=== PATIENT | male | born 1945 | race Caucasian/White ===

== ENCOUNTER 2025-08-17 16:49 | Inpatient (IN) | payer MEDICARE ==
[~2025-08-17 16:49] MED LIST: Iopamidol 370 76% 100 ML VIAL ONE
[2025-08-17] MEDS ORDERED: Dexamethasone 10 MG/ML VIAL ONE (17:48)
[2025-08-17 18:17] LABS: #Basophils 0.03 10x3/uL (0.0-0.2); #Eosinophils Less than 0.03 10x3/uL (0.0-0.5); #Monocytes 0.84 10x3/uL (0.0-1.1); #Neutrophils 5.26 10x3/uL (1.5-8.4); %Basophils 0.4 % (0.0-2.0); %Eosinophils 0.1 % (0.0-6.0); %Lymphocytes 13.6 % (18.0-47.0); %Monocytes 11.8 % (0.0-10.0); %Neutrophils 73.8 % (40.0-75.0); Hematocrit 38.2 % (38.8-50.0); Hemoglobin 12.6 g/dL (13.5-17.5); Mean Corpuscular Hemoglobin 33.2 pg (27.0-33.0); Mean Corpuscular Volume 100.8 fL (81.2-95.1); Platelet Count 253 10x3/uL (150-450); Red Blood Cell (RBC) Count 3.79 10x6/uL (4.32-5.72); White Blood Cell (WBC) Count 7.13 10x3/uL (3.5-10.5)
[2025-08-17 18:29] LABS: ALT (SGPT) 9 U/L (Less than 45); AST (SGOT) 13 U/L (11-34); Albumin 3.8 g/dL (3.1-4.5); Alkaline Phosphatase 82 U/L (40-110); Anion Gap 12 mmol/L (10-20); BUN (Urea Nitrogen) 16 mg/dL (8.4-25.7); Bilirubin, Total 0.5 mg/dL (0.3-1.2); Calc. Creatinine Clearance 0 mL/min (70-130); Calcium 9.5 mg/dL (7.8-10.44); Carbon Dioxide 26 mmol/L (23-31); Chloride 106 mmol/L (98-107); Globulin 2.2 g/dL (2.4-3.5); Glucose 99 mg/dL (83-110); Potassium 4.2 mmol/L (3.5-5.1); Sodium 140 mmol/L (136-145)
[2025-08-17 18:35] LABS: Troponin I Less than 0.010 ng/mL (< 0.028)
[2025-08-17] MEDS ORDERED: Cefepime 2 GM VIAL ONE (19:29)
[2025-08-17] MEDS ORDERED: Ondansetron PF 4 MG/2 ML Vial IVP PRN (20:01)
[2025-08-17] MEDS ORDERED: Acetaminophen 325 MG TAB PO PRN (20:01)
[2025-08-17 21:17] VITALS: BMI 28.3
[2025-08-17] MEDS: Apixaban 5 MG TAB PO SCH (22:11)
[2025-08-17] MEDS: VANCOMYCIN 2 GRAM/400 ML BAG 2 GM in Premix 1 BAG IVPB SCH (22:12)
[2025-08-18 06:07] LABS: #Basophils Less than 0.03 10x3/uL (0.0-0.2); #Eosinophils Less than 0.03 10x3/uL (0.0-0.5); #Monocytes 0.10 10x3/uL (0.0-1.1); #Neutrophils 4.94 10x3/uL (1.5-8.4); %Basophils 0.0 % (0.0-2.0); %Eosinophils 0.0 % (0.0-6.0); %Lymphocytes 9.0 % (18.0-47.0); %Monocytes 1.8 % (0.0-10.0); %Neutrophils 88.8 % (40.0-75.0); Hematocrit 37.6 % (38.8-50.0); Hemoglobin 12.5 g/dL (13.5-17.5); Mean Corpuscular Hemoglobin 33.2 pg (27.0-33.0); Mean Corpuscular Volume 99.7 fL (81.2-95.1); Platelet Count 200 10x3/uL (150-450); Red Blood Cell (RBC) Count 3.77 10x6/uL (4.32-5.72); White Blood Cell (WBC) Count 5.56 10x3/uL (3.5-10.5)
[2025-08-18 06:25] LABS: Anion Gap 12 mmol/L (10-20); BUN (Urea Nitrogen) 15 mg/dL (8.4-25.7); Calc. Creatinine Clearance 93 mL/min (70-130); Calcium 9.2 mg/dL (7.8-10.44); Carbon Dioxide 23 mmol/L (23-31); Chloride 107 mmol/L (98-107); Glucose 214 mg/dL (83-110); Potassium 4.2 mmol/L (3.5-5.1); Sodium 138 mmol/L (136-145)
[2025-08-18 06:32] LABS: Troponin I Less than 0.010 ng/mL (< 0.028)
[2025-08-18 07:59] LABS: Influenza A by NAA Not Detected (NotDetected); Influenza B by NAA Not Detected (NotDetected); RSV by NAA Not Detected (NotDetected); SARS-CoV-2 NAA Rapid Test Not Detected (NotDetected)
[2025-08-18] MEDS: Furosemide 20 MG TAB PO SCH (10:17)
[2025-08-18] MEDS: Apixaban 5 MG TAB PO SCH (10:17)
[2025-08-18] MEDS: Metoprolol Succinate XL 25 MG ER.TAB PO SCH (10:17)
[2025-08-18] MEDS: Pantoprazole 40 MG DR.TAB PO SCH (10:17)
[2025-08-18] MEDS: Linezolid 600 MG TAB PO SCH (20:36)
[2025-08-18] MEDS: valACYclovir 500 MG TAB PO SCH (20:36)
[2025-08-19 05:17] LABS: #Basophils Less than 0.03 10x3/uL (0.0-0.2); #Eosinophils Less than 0.03 10x3/uL (0.0-0.5); #Monocytes 0.37 10x3/uL (0.0-1.1); #Neutrophils 8.43 10x3/uL (1.5-8.4); %Basophils 0.0 % (0.0-2.0); %Eosinophils 0.0 % (0.0-6.0); %Lymphocytes 4.4 % (18.0-47.0); %Monocytes 4.0 % (0.0-10.0); %Neutrophils 91.2 % (40.0-75.0); Hematocrit 34.0 % (38.8-50.0); Hemoglobin 11.6 g/dL (13.5-17.5); Mean Corpuscular Hemoglobin 33.7 pg (27.0-33.0); Mean Corpuscular Volume 98.8 fL (81.2-95.1); Platelet Count 191 10x3/uL (150-450); Red Blood Cell (RBC) Count 3.44 10x6/uL (4.32-5.72); White Blood Cell (WBC) Count 9.25 10x3/uL (3.5-10.5)
[2025-08-19 05:31] LABS: Anion Gap 10 mmol/L (10-20); BUN (Urea Nitrogen) 22 mg/dL (8.4-25.7); Calc. Creatinine Clearance 88 mL/min (70-130); Calcium 9.3 mg/dL (7.8-10.44); Carbon Dioxide 24 mmol/L (23-31); Chloride 105 mmol/L (98-107); Glucose 140 mg/dL (83-110); Magnesium 1.8 mg/dL (1.6-2.6); Potassium 4.4 mmol/L (3.5-5.1); Sodium 135 mmol/L (136-145)
[2025-08-19] MEDS: Albuterol 2.5 MG (3 mL) NEB NEB PRN (22:00)
[2025-08-20 06:30] LABS: #Basophils Less than 0.03 10x3/uL (0.0-0.2); #Eosinophils Less than 0.03 10x3/uL (0.0-0.5); #Monocytes 1.36 10x3/uL (0.0-1.1); #Neutrophils 9.11 10x3/uL (1.5-8.4); %Basophils 0.1 % (0.0-2.0); %Eosinophils 0.0 % (0.0-6.0); %Lymphocytes 6.9 % (18.0-47.0); %Monocytes 12.0 % (0.0-10.0); %Neutrophils 80.0 % (40.0-75.0); Hematocrit 33.8 % (38.8-50.0); Hemoglobin 11.1 g/dL (13.5-17.5); Mean Corpuscular Hemoglobin 32.8 pg (27.0-33.0); Mean Corpuscular Volume 100.0 fL (81.2-95.1); Platelet Count 199 10x3/uL (150-450); Red Blood Cell (RBC) Count 3.38 10x6/uL (4.32-5.72); White Blood Cell (WBC) Count 11.38 10x3/uL (3.5-10.5)
[2025-08-20 06:46] LABS: Anion Gap 10 mmol/L (10-20); BUN (Urea Nitrogen) 22 mg/dL (8.4-25.7); Calc. Creatinine Clearance 73 mL/min (70-130); Calcium 9.1 mg/dL (7.8-10.44); Carbon Dioxide 23 mmol/L (23-31); Chloride 110 mmol/L (98-107); Glucose 93 mg/dL (83-110); Potassium 3.8 mmol/L (3.5-5.1); Sodium 139 mmol/L (136-145)
[2025-08-21 05:18] LABS: #Basophils Less than 0.03 10x3/uL (0.0-0.2); #Eosinophils Less than 0.03 10x3/uL (0.0-0.5); #Monocytes 0.44 10x3/uL (0.0-1.1); #Neutrophils 7.42 10x3/uL (1.5-8.4); %Basophils 0.1 % (0.0-2.0); %Eosinophils 0.0 % (0.0-6.0); %Lymphocytes 4.6 % (18.0-47.0); %Monocytes 5.3 % (0.0-10.0); %Neutrophils 88.8 % (40.0-75.0); Hematocrit 34.0 % (38.8-50.0); Hemoglobin 11.4 g/dL (13.5-17.5); Mean Corpuscular Hemoglobin 33.5 pg (27.0-33.0); Mean Corpuscular Volume 100.0 fL (81.2-95.1); Platelet Count 197 10x3/uL (150-450); Red Blood Cell (RBC) Count 3.40 10x6/uL (4.32-5.72); White Blood Cell (WBC) Count 8.35 10x3/uL (3.5-10.5)
[2025-08-21 05:31] LABS: Anion Gap 12 mmol/L (10-20); BUN (Urea Nitrogen) 23 mg/dL (8.4-25.7); Calc. Creatinine Clearance 77 mL/min (70-130); Calcium 9.0 mg/dL (7.8-10.44); Carbon Dioxide 22 mmol/L (23-31); Chloride 107 mmol/L (98-107); Glucose 151 mg/dL (83-110); Potassium 4.3 mmol/L (3.5-5.1); Sodium 137 mmol/L (136-145)
[2025-08-23 11:29] VITALS: BP 109/58; TEMP 97.9
== END 2025-08-23 12:44 | disposition home or self-care (01) | DRG 190 ==
LOC: CSHERS 16:49 → CSHTELE 20:01
PROVIDERS: ADMIT Internal Medicine; ATTEND Internal Medicine
PROC: 3E03329 Introduction of Other Anti-infective into Peripheral Vein, Percutaneous Approach (ICD-10-PCS; principal; 2025-08-17)
PROC: 5A09357 Assistance with Respiratory Ventilation, Less than 24 Consecutive Hours, Continuous Positive Airway Pressure (ICD-10-PCS; 2025-08-18)
DX: J44.1 Chronic obstructive pulmonary disease with (acute) exacerbation (principal); J18.9 Pneumonia, unspecified organism; D80.1 Nonfamilial hypogammaglobulinemia; J44.0 Chronic obstructive pulmonary disease with (acute) lower respiratory infection; I10 Essential (primary) hypertension; E78.5 Hyperlipidemia, unspecified; D64.9 Anemia, unspecified; G47.33 Obstructive sleep apnea (adult) (pediatric); Z86.718 Personal history of other venous thrombosis and embolism; Z90.49 Acquired absence of other specified parts of digestive tract; Z98.890 Other specified postprocedural states; Z88.8 Allergy status to other drugs, medicaments and biological substances; Z87.891 Personal history of nicotine dependence
CPT/HCPCS: 36415; 71045; 71275; 80048; 80053; 82787; 83735; 84145; 84484; 85025; 86140; 86141; 87070; 87077; 87186; 87205; 87637; 93005; 94640; 94760; 94762; 96374; 96375; J0692; J1100; J2919; J3375; J7611; Q9967